=== PATIENT | male | born 1965 | race Caucasian/White ===

== ENCOUNTER 2018-06-02 19:45 | Emergency (ER) | payer MEDICARE, OTHER ==
[~2018-06-02] VITALS: Ht 167.6 cm; Wt 108.9 kg
[2018-06-02 20:38] LABS: BASOPHILS # (AUTO) 0.1 /CMM (0.0-0.2); BASOPHILS % (AUTO) 0.8 % (0.0-2.0); EOSINOPHILS % (AUTO) 0.2 % (0.0-6.0); HEMATOCRIT 42 % (39-51); HEMOGLOBIN 14.3 g/dL (13.5-17.5); LYMPHOCYTES # (AUTO) 1.7 /CMM (0.8-4.8); MEAN CORPUSCULAR HGB CONC 34 g/dl (31.0-36.0); MEAN CORPUSCULAR VOLUME 86 fL (80-96); MONOCYTES # (AUTO) 0.7 /CMM (0.1-1.30); MONOCYTES % (AUTO) 8.7 % (2.0-12.0); NEUTROPHILS # (AUTO) 5.6 /CMM (1.8-8.9); NEUTROPHILS % (AUTO) 69.3 % (43.0-81.0); PLATELET COUNT (AUTO) 266 /CMM (150-450); RED BLOOD CELL COUNT(AUTO) 4.89 MIL/uL (4.5-6.0); WHITE BLOOD COUNT (AUTO) 8.1 K/uL (4.3-11.0)
[2018-06-02 20:55] LABS: ALANINE AMINOTRANSFERASE 47 U/L (12-78); ALBUMIN 3.4 g/dL (3.4-5.0); ALCOHOL, BLOOD 322 mg/dL (0-0); ALKALINE PHOSPHATASE 193 U/L (46-116); ASPARTATE AMINOTRANSFERASE 23 U/L (15-37); BILIRUBIN,DIRECT 0.1 mg/dL (0.0-0.2); BILIRUBIN,TOTAL 0.3 mg/dL (0.2-1.0); CALCIUM, SERUM 8.5 mg/dL (8.5-10.1); CARBON DIOXIDE 22 mmol/L (21-32); CHLORIDE 100 mmol/L (98-107); CREATININE 0.7 mg/dL (0.6-1.3); POTASSIUM 3.2 mmol/L (3.5-5.1); SODIUM SERUM 139 mmol/L (136-145); TOTAL PROTEIN, SERUM 7.1 g/dL (6.4-8.2); UREA NITROGEN, BLOOD 14 mg/dL (7-18)
[2018-06-02 20:56] LABS: ACETAMINOPHEN < 2 ug/ml (10-30); GLUCOSE 351 mg/dL (74-106); SALICYLATE 2.2 mg/dL (2.8-20.0)
[2018-06-03 01:47] LABS: APPEARANCE,URINE CLEAR (CLEAR); BILIRUBIN,URINE NEGATIVE (NEGATIVE); BLOOD, URINE TRACE-INTA Ery/uL (NEGATIVE); COLOR,URINE YELLOW (YELLOW); KETONES,URINE TRACE (NEGATIVE); LEUKOCYTE ESTERASE ,URINE NEGATIVE (NEGATIVE); NITRITE, URINE NEGATIVE (NEGATIVE); PROTEIN,URINE 1+ mg/dl (NEGATIVE); UGLUCOSE 3+ mg/dL (NEGATIVE); UROBILINOGEN,URINE 0.2 EU/dL (0.2)
[2018-06-03 01:58] LABS: BACTERIA,URINE Rare /HPF (None Seen); RBC,URINE 0-2 /HPF (0-2); SQUAMOUS EPITHELIAL CELL,UR Rare /HPF (None Seen); WBC,URINE 0-2 /HPF (0-3)
[2018-06-03] MEDS ORDERED: IBUPROFEN 600 MG TABLET PO ONE ×2 (08:50→09:00)
[2018-06-03 13:05] VITALS: BP 135/71
== END 2018-06-03 13:05 ==
LOC: ER 19:48
DX: F10.229 Alcohol dependence with intoxication, unspecified (principal); E11.65 Type 2 diabetes mellitus with hyperglycemia; E11.22 Type 2 diabetes mellitus with diabetic chronic kidney disease; I12.0 Hypertensive chronic kidney disease with stage 5 chronic kidney disease or end stage renal disease; N18.6 End stage renal disease; R56.9 Unspecified convulsions; G93.40 Encephalopathy, unspecified; G47.30 Sleep apnea, unspecified; F17.200 Nicotine dependence, unspecified, uncomplicated; F12.10 Cannabis abuse, uncomplicated; Z99.2 Dependence on renal dialysis; Z89.511 Acquired absence of right leg below knee; Z59.0 Homelessness; Z98.49 Cataract extraction status, unspecified eye
CPT/HCPCS: 36415; 80048-TC; 80076-TC; 80305; 81000-TC; 82962-TC; 85025-TC; G0480

== ENCOUNTER 2023-01-14 12:52 | Inpatient (IN) | payer MEDICARE, OTHER ==
[~2023-01-14] VITALS: Ht 175.3 cm; Wt 108.9 kg
[2023-01-14] MEDS ORDERED: IOHEXOL-300 100 ML VIAL IV ONE (14:42)
[2023-01-14] MEDS ORDERED: IV NS 0.9% 250 ML IV ONE (14:42)
[2023-01-14 14:52] LABS: HEMATOCRIT 45 % (39-51); HEMOGLOBIN 15.5 g/dL (13.5-17.5); MEAN CORPUSCULAR HEMOGLOBIN 29 PG (26.0-33.0); MEAN CORPUSCULAR VOLUME 86 fL (80-96); WHITE BLOOD COUNT (AUTO) 9.7 K/uL (4.3-11.0)
[2023-01-14 14:55] LABS: CALCIUM, SERUM 9.1 mg/dL (8.5-10.1); MEAN CORPUSCULAR HGB CONC 34 g/dl (31.0-36.0); POTASSIUM 3.8 mmol/L (3.5-5.1); RED CELL DISTRIBUTION WIDTH 13.9 % (11.5-15.0)
[2023-01-14 14:56] LABS: BASOPHILS # (AUTO) 0.1 K/uL (0.0-0.2); BASOPHILS % (AUTO) 0.8 % (0.0-2.0); EOSINOPHILS # (AUTO) 0.2 K/uL (0.0-0.7); EOSINOPHILS % (AUTO) 1.9 % (0.0-6.0); LYMPHOCYTES # (AUTO) 1.7 K/uL (0.8-4.8); LYMPHOCYTES % (AUTO) 17.6 % (20.0-44.0); MONOCYTES # (AUTO) 0.5 K/uL (0.1-1.30); MONOCYTES % (AUTO) 5.2 % (2.0-12.0); NEUTROPHILS # (AUTO) 7.2 K/uL (1.8-8.9); NEUTROPHILS % (AUTO) 74.5 % (43.0-81.0); PLATELET COUNT (AUTO) 214 K/uL (150-450)
[2023-01-14 14:59] LABS: APPEARANCE,URINE CLEAR (CLEAR); BILIRUBIN,URINE NEGATIVE (NEGATIVE); BLOOD, URINE NEGATIVE Ery/uL (NEGATIVE); COLOR,URINE YELLOW (YELLOW); KETONES,URINE NEGATIVE (NEGATIVE); LEUKOCYTE ESTERASE ,URINE NEGATIVE (NEGATIVE); NITRITE, URINE NEGATIVE (NEGATIVE); PROTEIN,URINE NEGATIVE (NEGATIVE); UGLUCOSE NEGATIVE (NEGATIVE); UROBILINOGEN,URINE 0.2 EU/dL (0.2)
[2023-01-14 15:02] LABS: ALBUMIN 3.7 g/dL (3.4-5.0); BILIRUBIN,DIRECT 0.1 mg/dL (0.0-0.2); BILIRUBIN,TOTAL 0.5 mg/dL (0.2-1.0); TOTAL PROTEIN, SERUM 7.2 g/dL (6.4-8.2)
[2023-01-14 15:14] LABS: LACTIC ACID 1.4 mmol/L (0.4-2.0)
[2023-01-14] MEDS ORDERED: ACETAMINOPHEN 325 MG TABLET PO PRN (17:30)
[2023-01-14] MEDS ORDERED: MAGNESIUM HYDROXIDE 30 ML UDC PO PRN (17:30)
[2023-01-14] MEDS ORDERED: MAG HYDROX/AL HYDROX/SIMETH 30 ML UDC PO PRN (17:30)
[2023-01-14] MEDS ORDERED: Z GUARD REMEDY 4 OZ OINT TP PRN (17:30)
[2023-01-14] MEDS ORDERED: ONDANSETRON HCL/PF 4 MG/2 ML VIAL IVP PRN (17:30)
[2023-01-14] MEDS ORDERED: DEXT15DR6 EACHEYE (18:56)
[2023-01-14] MEDS ORDERED: NA P133E RC (18:56)
[2023-01-14] MEDS ORDERED: VENL150T PO (18:56)
[2023-01-14] MEDS ORDERED: PSYL3.4P6 PO (18:56)
[2023-01-14] MEDS ORDERED: BISA10SU11 RC (18:56)
[2023-01-14] MEDS ORDERED: METF-440 PO (18:56)
[2023-01-14] MEDS ORDERED: TRAZ-257 PO (18:56)
[2023-01-14] MEDS ORDERED: LITH300T3 PO (18:56)
[2023-01-14] MEDS ORDERED: MAGN400O6 PO (18:56)
[2023-01-14] MEDS ORDERED: CELE200C PO (18:56)
[2023-01-14] MEDS ORDERED: POLY17PO4 PO (18:56)
[2023-01-14] MEDS ORDERED: LITH150C PO (18:56)
[2023-01-14] MEDS ORDERED: ACET-868 PO (18:56)
[2023-01-14] MEDS ORDERED: CRAN425C6 PO (18:56)
[2023-01-14] MEDS ORDERED: MULT-754 PO (18:56)
[2023-01-14] MEDS ORDERED: LUBI8CAP PO (18:56)
[2023-01-14] MEDS ORDERED: BENA10TA74 PO (18:56)
[2023-01-14] MEDS ORDERED: ARIP5TAB10 PO (18:56)
[2023-01-14 20:29] VITALS: BP 136/82; TEMP 97.8; O2SAT 95
[2023-01-15 06:46] LABS: BASOPHILS # (AUTO) 0.1 K/uL (0.0-0.2); BASOPHILS % (AUTO) 0.7 % (0.0-2.0); EOSINOPHILS # (AUTO) 0.2 K/uL (0.0-0.7); EOSINOPHILS % (AUTO) 2.2 % (0.0-6.0); HEMATOCRIT 45 % (39-51); HEMOGLOBIN 15.1 g/dL (13.5-17.5); LYMPHOCYTES % (AUTO) 20.1 % (20.0-44.0); MEAN CORPUSCULAR HEMOGLOBIN 29 PG (26.0-33.0); MEAN CORPUSCULAR HGB CONC 34 g/dl (31.0-36.0); MEAN CORPUSCULAR VOLUME 86 fL (80-96); MONOCYTES # (AUTO) 0.5 K/uL (0.1-1.30); MONOCYTES % (AUTO) 5.5 % (2.0-12.0); NEUTROPHILS % (AUTO) 71.5 % (43.0-81.0); PLATELET COUNT (AUTO) 205 K/uL (150-450); RED BLOOD CELL COUNT(AUTO) 5.17 MIL/uL (4.5-6.0); RED CELL DISTRIBUTION WIDTH 13.8 % (11.5-15.0); WHITE BLOOD COUNT (AUTO) 9.9 K/uL (4.3-11.0)
[2023-01-15 07:09] LABS: CALCIUM, SERUM 8.9 mg/dL (8.5-10.1); CREATININE 0.8 mg/dL (0.6-1.3); MAGNESIUM 2.1 mg/dL (1.8-2.4); PHOSPHORUS 3.2 mg/dL (2.5-4.9); POTASSIUM 3.8 mmol/L (3.5-5.1)
[2023-01-15 08:00] VITALS: BP 161/93; TEMP 97.7; O2SAT 96
[2023-01-15] MEDS ORDERED: ACETAMINOPHEN 325 MG TABLET PO PRN (09:00)
[2023-01-15] MEDS ORDERED: MAGNESIUM HYDROXIDE 30 ML UDC PO PRN (09:00)
[2023-01-15] MEDS ORDERED: BISACODYL SUPP (10 MG) 10 MG/SUPP.RECT SUPP.RECT RC PRN (09:00)
[2023-01-15] MEDS ORDERED: Medication Not On Formulary EA (Lubiprostone (Amitiza) 8 MCG) PO SCH (09:00)
[2023-01-15] MEDS ORDERED: NA PHOS,M-B/NA PHOS,DI-BA 1 EA ENEMA RC PRN (09:00)
[2023-01-15] MEDS: METFORMIN 500 MG TABLET PO SCH ×2 (09:31→16:30)
[2023-01-15] MEDS: POLYETHYLENE GLYCOL 3350 17 GM POWD.PACK PO SCH (09:31)
[2023-01-15] MEDS: BENAZEPRIL HCL 10 MG TABLET PO SCH ×2 (09:32→16:30)
[2023-01-15] MEDS: ARIPIPRAZOLE 5 MG TABLET PO SCH (09:32)
[2023-01-15 16:00] VITALS: BP 174/105; TEMP 98.8; O2SAT 94
[2023-01-15 20:00] VITALS: BP 148/105; TEMP 98; O2SAT 95
[2023-01-15] MEDS: TRAZODONE 50 MG TABLET PO SCH (21:45)
[2023-01-15] MEDS: LITHIUM CARBONATE 150 MG CAPSULE PO SCH (22:01)
[2023-01-16 00:40] VITALS: BP 133/84; O2SAT 95
[2023-01-16] MEDS: ZOLPIDEM TARTRATE 5 MG TABLET PO PRN (00:40)
[2023-01-16 08:20] VITALS: BP 152/100; TEMP 98; O2SAT 95
[2023-01-16] MEDS: ARIPIPRAZOLE 5 MG TABLET PO SCH (08:32)
[2023-01-16] MEDS: METFORMIN 500 MG TABLET PO SCH ×2 (08:32→16:28)
[2023-01-16] MEDS: CELECOXIB 100 MG CAPSULE PO SCH (08:32)
[2023-01-16] MEDS: VENLAFAXINE XR 150 MG CAP.SR.24H PO SCH (08:33)
[2023-01-16] MEDS: BENAZEPRIL HCL 10 MG TABLET PO SCH ×2 (08:33→16:28)
[2023-01-16] MEDS: LITHIUM CARBONATE (300 MG CAP) 300 MG CAPSULE PO SCH (08:33)
[2023-01-16] MEDS: POLYETHYLENE GLYCOL 3350 17 GM POWD.PACK PO SCH (08:37)
[2023-01-16 16:15] VITALS: BP 164/102; TEMP 98.1; O2SAT 95
[2023-01-16 21:01] VITALS: BP 147/103; TEMP 97.9; O2SAT 95
[2023-01-16] MEDS: TRAZODONE 50 MG TABLET PO SCH (21:48)
[2023-01-16] MEDS: LITHIUM CARBONATE 150 MG CAPSULE PO SCH (21:48)
[2023-01-17] MEDS: ZOLPIDEM TARTRATE 5 MG TABLET PO PRN (00:12)
[2023-01-17 07:30] VITALS: BP 138/78; TEMP 98.2; O2SAT 97
[2023-01-17 08:26] VITALS: BP 132/78
[2023-01-17] MEDS: LITHIUM CARBONATE (300 MG CAP) 300 MG CAPSULE PO SCH (08:26)
[2023-01-17] MEDS: CELECOXIB 100 MG CAPSULE PO SCH (08:26)
[2023-01-17] MEDS: ARIPIPRAZOLE 5 MG TABLET PO SCH (08:26)
[2023-01-17] MEDS: BENAZEPRIL HCL 10 MG TABLET PO SCH (08:26)
[2023-01-17] MEDS: METFORMIN 500 MG TABLET PO SCH (08:26)
[2023-01-17] MEDS: VENLAFAXINE XR 150 MG CAP.SR.24H PO SCH (08:26)
[2023-01-17] MEDS: POLYETHYLENE GLYCOL 3350 17 GM POWD.PACK PO SCH (08:27)
== END 2023-01-17 13:25 | DRG 393 ==
LOC: ER 13:00 → MED 19:25
PROVIDERS: ADMIT Internal Medicine; ATTEND Internal Medicine
DX: K43.9 Ventral hernia without obstruction or gangrene (principal); G93.41 Metabolic encephalopathy; K57.30 Diverticulosis of large intestine without perforation or abscess without bleeding; E86.0 Dehydration; E66.9 Obesity, unspecified; E78.5 Hyperlipidemia, unspecified; G40.909 Epilepsy, unspecified, not intractable, without status epilepticus; R53.1 Weakness; Z68.35 Body mass index [BMI] 35.0-35.9, adult; Z79.84 Long term (current) use of oral hypoglycemic drugs; F32.9 Major depressive disorder, single episode, unspecified; Z90.49 Acquired absence of other specified parts of digestive tract; I10 Essential (primary) hypertension; E11.9 Type 2 diabetes mellitus without complications
CPT/HCPCS: 36415; 80048-TC; 80076-TC; 83605-TC; 83690-TC; 83735-TC; 84100-TC; 85025-TC; 87081-TC; G0378; J7050; Q9967